=== PATIENT | male | born 1945 | race Caucasian/White ===

== ENCOUNTER → 2023-03-28 | Outpatient (CLI) | payer MEDICARE ==
[2023-03-28 15:27] LABS: African American GFR (CKD) 94.2 (60.0-200.0); BUN/Creat Ratio 31.87 Ratio (12.00-20.00); Blood Urea Nitrogen 29.1 mg/dL (9.0-27.0); Calcium 9.3 mg/dL (8.7-10.3); Carbon Dioxide 33.2 mmol/L (20.0-27.5); Chloride 95 mmol/L (96-109); Chol/HDL Ratio 2.67 Ratio; Glucose 150 mg/dL (70-110); LDL Cholesterol,Calculated 39.4 mg/dL (0.0-131.0); Non-African American GFR(CKD) 81.3 (60.0-200.0); Potassium 3.8 mmol/L (3.5-5.5); Sodium 140 mmol/L (135-145)
[2023-03-28 16:05] LABS: Basophils # (A) 0.07 X 10*3/uL (0.00-0.10); Basophils % (A) 0.6 %; Eosinophils # (A) 0.23 X 10*3/uL (0.04-0.35); Eosinophils % (A) 2.1 %; HGB 14.9 g/dL (13.0-17.0); Immature Grans, Automated 0.5 %; Lymphocytes # (A) 1.84 X 10*3/uL (0.90-5.00); Lymphocytes % (A) 16.6 %; MCH 28.9 pg (27.0-32.0); MCHC 31.7 g/dL (32.0-37.0); MCV 91.1 fL (80.0-97.0); Mean Platelet Volume 10.6 fL (9.5-12.2); NRBC Per 100 WBC 0 /100 WBCS (0.0-0.0); Neutrophils # (A) 7.87 X 10*3/uL (1.80-7.70); Neutrophils % (A) 71.2 %; Platelet Count 199 X 10*3/uL (140-440); RBC 5.16 X 10*6/uL (4.40-5.60); RDW 13.5 % (11.5-14.5); WBC 11.06 X 10*3/uL (4.50-10.00)
== END | disposition home or self-care (01) ==
LOC: LABWHC1 11:22
PROVIDERS: ATTEND Nurse Practitioner
DX: I10 Essential (primary) hypertension (principal); E11.9 Type 2 diabetes mellitus without complications
CPT/HCPCS: 36415; 80048; 80061; 85025

== ENCOUNTER 2023-04-10 07:02 | Day surgery (SDC) | payer MEDICARE ==
[~2023-04-10 07:02] MED LIST: ALPRAZolam 0.25 MG TAB PO PRN; ALPRAZolam 0.5 MG TAB PO PRN; ASPIRIN 325 MG TAB PO STA; ATORVASTATIN 80 MG TAB PO STA; HEPARIN SODIUM,PORCINE 10,000 UNIT in SODIUM CHLORIDE 0.9% 1,000 ML IRRIGATION PRN; HEPARIN SODIUM,PORCINE 2,500 UNIT in SODIUM CHLORIDE 0.9% 250 ML IRRIGATION PRN; NITROGLYCERIN SL TABS 0.4 MG TAB SUBLINGUAL PRN; SODIUM CHLORIDE 0.9% 1,000 ML in EMPTY BAG 1 BAG IV SCH
[2023-04-10] MEDS ORDERED: SODIUM CHLORIDE 0.9% 1,000 ML IV ONE (07:30)
[2023-04-10 07:48] LABS: Glucose,Whole Blood 134 mg/dL (70-110)
[2023-04-10 07:51] VITALS: RESP 16; TEMP 98.5
[2023-04-10 07:52] LABS: Basophils % (A) 0 %; Eosinophils # (A) 0.2 k/uL (0-0.7); Eosinophils % (A) 2 %; HCT 47.9 % (39.0-53.0); HGB 14.9 gm/dL (13.0-17.5); Lymphocytes # (A) 1.9 k/uL (1.0-4.8); Lymphocytes % (A) 19 %; MCH 29.1 pg (25.0-35.0); MCHC 31.2 g/dL (31.0-37.0); MCV 93.3 fL (80.0-100.0); Mean Platelet Volume 7.6; Monocytes # (A) 0.5 k/uL (0-1.0); Monocytes % (A) 5 %; Neutrophils # (A) 7.2 k/uL (1.3-7.7); Neutrophils % (A) 72 %; Platelet Count 192 k/uL (150-450); RBC 5.13 m/uL (4.30-5.90); RDW 13.8 % (11.5-15.5)
[2023-04-10 08:02] LABS: INR 1.5 (<1.2); Prothrombin Time 15.3 sec (9.0-12.0)
[2023-04-10 08:09] LABS: African American GFR (CKD) >90 (>60 ml/min/1.73 sqM); Blood Urea Nitrogen 30 mg/dL (9-20); Calcium 8.8 mg/dL (8.4-10.2); Chloride 88 mmol/L (98-107); Glucose 147 mg/dL (74-99); Non-African American GFR(CKD) 89 (>60 ml/min/1.73 sqM); Potassium 3.1 mmol/L (3.5-5.1); Sodium 136 mmol/L (137-145)
[2023-04-10 08:27] LABS: Anion Gap 9 mmol/L
[2023-04-10 08:32] LABS: Carbon Dioxide 39 mmol/L (22-30)
[2023-04-10] MEDS ORDERED: HEPARIN SODIUM 1,000 UN/ML (10ML VL) ONE (09:12)
[2023-04-10] MEDS ORDERED: POTASSIUM CHLORIDE ER 20 MEQ TAB.ER PO STA (09:18)
[2023-04-10] MEDS ORDERED: MIDAZOLAM 2 MG/2 ML VIAL IV ONE (09:20)
[2023-04-10] MEDS ORDERED: LIDOCAINE 1% INJ 10MG/ML (5 ML VIAL-PF) SQ ONE (09:23)
[2023-04-10] MEDS: HEPARIN SODIUM 1,000 UN/ML (10ML VL) IV ONE ×3 (09:32→10:00)
[2023-04-10] MEDS ORDERED: HYDROmorphone 0.5 MG/0.5 ML SYRINGE IVP ONE (09:50)
[2023-04-10] MEDS ORDERED: IOPAMIDOL-370 100ML BTL INJ ONE ×2 (10:02→10:13)
[2023-04-10] MEDS ORDERED: NITROGLYCERIN 1000MCG/10ML SYRINGE INTRACORON ONE (10:05)
[2023-04-10] MEDS ORDERED: CLOPIDOGREL 75 MG TAB ONE (10:08)
[2023-04-10] MEDS ORDERED: CLOPIDOGREL 75 MG TAB PO ONE (10:13)
[2023-04-10] MEDS ORDERED: SODIUM CHLORIDE 0.9% 1,000 ML IV SCH (10:25)
--- NOTE | 2023-04-10 12:00 | CC ---
CARDIAC CATHETERIZATION REPORT DATE OF SERVICE: 04/10/2023. PROCEDURES PERFORMED: 1. Left heart catheterization and coronary angiography. 2. Percutaneous transluminal coronary angioplasty and stenting of calcified mid right coronary artery with a drug-eluting stent. 3. Intracoronary ultrasound of right coronary artery. PERFORMED BY: Dr. Cruz Shukla. Moderate conscious sedation time was 48 minutes. The patient was administered Versed. Oxygen saturation, hemodynamics, and EKG were monitored closely. CLINICAL INFORMATION: Mr. Charlie Mcgrath is a 77-year-old obese gentleman with chronic atrial fibrillation, hypertension, hyperlipidemia, type 2 diabetes, and also recently has been having increasing shortness of breath. Ejection fraction has also decreased from about 45% to 50% down to 40%. He was advised coronary angiography to rule out obstructive CAD since he has exertional shortness of breath which was thought to be an anginal equivalence. Risks, benefits, options, and rationale were explained, and the patient was brought in for the procedure electively. PROCEDURE NOTE: Under local anesthesia and strict aseptic precautions, a 6-Persian introducer was placed in the right radial artery. Using JL3.5 and JR4 catheters, I performed coronary angiography, and the same right catheter was used to check LV pressures, but LV-gram was not performed. Following this, I proceeded to perform PCI of mid RCA which was a 99% lesion, and RCA was a superdominant large-caliber vessel. Following the procedure, the sheath was taken out, and a Vasc Band was applied with good saturation in the fingers of the right hand of 95% to 96%. The patient received 7500 units of heparin, but the ACT cartridges were not available; and therefore, we could not measure the ACT, but he received about 75 units/kg of his body weight. He also received 600 mg of Plavix. He will be on a combination of Coumadin and Plavix indefinitely. This patient has chronic atrial fibrillation and has been on Coumadin with good Pro-times. CARDIAC CATHETERIZATION FINDINGS: The left ventricular end-diastolic pressure was about 4 to 5 mmHg without any gradient across aortic valve. CORONARY ANGIOGRAPHY FINDINGS: 1. RIGHT CORONARY ARTERY: Technically dominant vessel. [id number] calcification in the mid portion. There is a 95% stenosis after acute marginal branch, and then the caliber improves. Vessel runs distally, gives off a large PLV and smaller PDA, supplies a fair amount of myocardium. 2. LEFT MAIN CORONARY ARTERY: Long, patent, disease-free vessel. Mild calcification. Bifurcates into LAD and circumflex. 3. LEFT ANTERIOR DESCENDING CORONARY ARTERY: Good-caliber vessel, extends along the anterior wall, gives off septal and diagonal branches. At the origin of the diagonal branch, there is a 35% narrowing, moderate calcification, after which the caliber improves. The vessel runs all the way to the apex. No significant disease in the LAD system. 4. LEFT POSTERIOR CIRCUMFLEX CORONARY ARTERY: Technically nondominant vessel, gives off a large obtuse marginal that runs laterally, supplies a fair amount of myocardium. There is a small AV groove branch, has minor irregularities, no significant disease. Circumflex is nondominant, no significant disease. LEFT VENTRICULOGRAM: Left ventriculogram was not performed. FINAL IMPRESSION: This patient has a right-dominant system. [id number]-[id number] filling pressures. No gradient. 95% mid right coronary artery stenosis. 35% mid left anterior descending stenosis. No significant disease in circumflex or left main. Left ventriculogram was not performed. PCI PROCEDURE DETAILS: I used a standard right Lauryn guide catheter to cannulate the right coronary artery, and a Runthrough wire was used to cross the lesion. Wire was kept distally. I then used a 3.5 caliber NC Trek balloon to pre-dilate the lesion. I deployed a 4.0 caliber 15 mm long Xience stent at 14 atmospheres. I performed intravascular ultrasound to make sure there were good stent apposition and good stent expansion. The stent apposition and expansion were excellent. The diameters of the vessel and the stent were about 1:1 ratio. Excellent angiographic result was achieved both angiographically and by intravascular ultrasound. The patient received 600 mg of Plavix. The sheath was taken out, and a Vasc Band was applied, and he was sent to the room in a stable condition. Results were discussed with the patient and family. I expect him to be discharged later on this evening. MMODL / IJN: [id number] /
[2023-04-10 17:47] VITALS: BP 110/66; PULSE 96
== END 2023-04-10 16:23 | disposition home or self-care (01) ==
LOC: CATHCVL 07:02
PROVIDERS: ATTEND Internal Medicine Interventional Cardiology
DX: I48.20 Chronic atrial fibrillation, unspecified (principal); I08.0 Rheumatic disorders of both mitral and aortic valves; I10 Essential (primary) hypertension; E78.5 Hyperlipidemia, unspecified; E11.9 Type 2 diabetes mellitus without complications; F17.210 Nicotine dependence, cigarettes, uncomplicated; Z79.01 Long term (current) use of anticoagulants; Z79.899 Other long term (current) drug therapy
CPT/HCPCS: 92978; 93458; 80048; 85025; 85610; C1769 ×3; C9600; C1887; C1894; C1753; C1874; C1725 ×2; J2250; J2001; J1644; J1170; Q9967